=== PATIENT | female | born 1960 | race Caucasian/White ===

== ENCOUNTER 2024-03-10 07:08 | Day surgery (SDC) | payer OTHER ==
[~2024-03-10] VITALS: Ht 160 cm; Wt 66.7 kg
[2024-03-10] MEDS ORDERED: LIDOCAINE 2% 100 MG/5 ML UJET TP ONE ×2 (07:53→10:26)
[2024-03-10] MEDS ORDERED: fentaNYL citrate 0.05 MG/ML VIAL ONE ×2 (07:53→10:25)
[2024-03-10] MEDS: fentaNYL citrate 0.05 MG/ML VIAL IVP ONE (08:10)
[2024-03-10] MEDS ORDERED: SODIUM PHOSPHATE 118 ML ENEM RC PRN (08:25)
[2024-03-10] MEDS ORDERED: METOCLOPRAMIDE 10 MG/2 ML INJ VIAL IVP PRN (08:30)
== END 2024-03-10 11:30 | disposition home or self-care (01) ==
LOC: MDS 07:08 → MMU 07:09 → MDS 11:30
PROVIDERS: ATTEND Internal Medicine Gastroenterology
DX: Z12.11 Encounter for screening for malignant neoplasm of colon (principal); K57.30 Diverticulosis of large intestine without perforation or abscess without bleeding; R10.13 Epigastric pain; K21.9 Gastro-esophageal reflux disease without esophagitis
CPT/HCPCS: G0121; J3010